=== PATIENT | male | born 1975 | race Caucasian/White ===

== ENCOUNTER 2025-03-21 12:52 | Outpatient (REF) | payer OTHER, SELFPAY ==
--- NOTE | ~2025-03-21 | US_ITS ---
EXAMINATION: US TRIPLEX LOWER EXTREMITY, RIGHT CLINICAL INFORMATION: Status post main procedure COMPARISON: None available. TECHNIQUE: Color-flow triplex imaging with spectral analysis and compression Doppler were performed on the right lower extremity. FINDINGS: Respiratory variation, normal compression and augmented flow are demonstrated in the interrogated common femoral vein, superficial femoral vein, profunda femoral vein, popliteal vein and midcalf peroneal and posterior tibial venous segments . There is an enlarged greater saphenous vein with the intermediate echotexture and no flow on color Doppler interrogation. Perforators in the rock small calf region at the right great saphenous vein without gross reflux and demonstrated internal echoes. There is no Elias's cyst. US/US venous duplex LE RT IMPRESSION: No acute deep venous thrombosis interrogated veins, right lower extremity. Negative for DVT. Augmented right great saphenous vein without reflux. Probable thrombosed perforators at the calf region. A preliminary report provided by the staff cytotechnologist at 1:27 PM to the nurse practitioner, Elijah, on March 21, 2025.. Electronically signed by: Gio Poole MD 03/21/2025 01:59 PM EDT
--- OUTSIDE RECORDS SUMMARY | 2025-03-21 15:14 | XMS_ITS | Clinical Summary ---
Author Organization [facility] Address [address] [place] [phone] Phone Care Team Providers Care Director Physical Therapy Name Role Phone Pcp, Unknown Primary Care Provider Unavailabl e Allergies No known active allergies Medications No known medications Social History Tobacco Use Types Packs/Day Years Used Date Smoking Tobacco: Never Assessed Education Answer Date Recorded Are you interested in more education? Not on hector e 09/23/2023 Are you concerned about learning? Not on file 09/23/2023 No 09/23/2023 No 09/23/2023 Digital Access Answer Date Recorded No 09/23/2023 No 09/23/2023 Reliable internet access at home? Not on file 09/23/2023 Device with a working camera? Not on file Sex and Gender Information Value Date Recorded Sex Assigned at Not on file Legal Sex Male 9:10 AM EDT Gender Identity Not on file Sexual Orientation Not on file Last Filed Vital Signs Vital Sign Reading Time Taken Comments Blood Pressure 132/76 09/23/2023 2:33 PM EDT Pulse 96 09/23/2023 2:33 PM EDT Temperature - - Respiratory Rate 16 09/23/2023 2:33 PM EDT Oxygen Saturation 98% 09/23/2023 2:33 PM EDT Inhaled Oxygen Concentration - - Weight 104.3 kg (230 lb) 09/23/2023 2:33 PM EDT Height 188 cm (6' 2 ) 09/23/2023 2:33 PM EDT Body Mass Index 29.53 09/23/2023 2:33 PM EDT Plan of Treatment Health Maintenance Due Date Last Done Comments Adult Td,Tdap Booster 1973 LIPID PANEL 1973 DEPRESSION SCREENING 1985 SMOKING Hx and SMOKELESS TOBACCO SCREENING 1986 HEPATITIS C SCREENING 10/10/1991 HIV ONE-TIME SCREENING (18-6 5 YEARS) 10/10/1991 SCREENING FOR DIABETES 2008 COLOGUARD 2018 COLONOSCOPY 2018 COLORECTAL CANCER SCREENING 2018 FIT TEST 2018 FOBT 2018 SIGMOIDOSCOPY 2018 VIRTUAL COLONOSCOPY 2018 PNEUMOCOCCAL VACCINES (50+ years) (1 of 1 - PCV) 10/10/2023 ZOSTER VACCINES (1 of 2) 10/10/2023 INFLUENZA VACCINE (#1) 2025 COVID-19 VACCINE (2024-2 6 season) 2025 07/26/2021, 08/21/2020, 07/24/2020 HEPATITIS A VACCINES Aged Out No long er eligible based on patient's age to complete this topic HIB VACCINES Aged Out No longer eligi ble based on patient's age to complete this topic MENINGOCOCCAL VACCINES (ACWY) Aged Out No longer eligible based on patient's age to complete this topic MENINGOCOCCAL VACCINES (B) Aged Out N o longer eligible based on patient's age to complete this topic Medical Devices Not on file Insurance [facility] HMO OUT OF STATE MEDICAID [facility] MED[facility] MEDICAID [facility] Member Subscriber Plan / Payer (Ef fective 2022-Present) Name:Ganesh Pastrana Relation to Subscriber:Self Name:Ganesh Pastrana Payer ID:Not on file Type:HMO Address: [address] MEDICAID [facility] MEDICAID [facility] HMO [facility] OUT OF STATE MEDICAID Care Teams Director Physical Therapy Relationship Specialty Start Date End Date Pcp, Unknown PCP - General 09/23/23 Additional Source Comments The information contained in this document represents components of the legal health record. It is not the complete legal health record.[facility]
== END 2025-03-21 12:53 | disposition home or self-care (01) ==
LOC: HO.US 12:52
PROVIDERS: Visit Provider Student in an Organized Health Care Education/Training Program
DX: Z00.00 Encounter for general adult medical examination without abnormal findings (principal)
CPT/HCPCS: 93971

== ENCOUNTER → 2025-03-21 13:08 | Outpatient (BNV) | payer OTHER, SELFPAY | PROVIDERS: Visit Provider Radiology Diagnostic Radiology | DX: I82.561 Chronic embolism and thrombosis of right calf muscular vein (principal) | CPT/HCPCS: 93971 ==